=== PATIENT | male | born 1980 | race Asian ===

== ENCOUNTER 2017-03-04 20:26 | Emergency (ER) | payer MEDICAID ==
[~2017-03-04] VITALS: Ht 172.7 cm; Wt 81.8 kg
[~2017-03-04 20:26] MED LIST: ALBU8.5H8 IH; GUAI120015 PO; HYDR-569 PO; NO HOME MEDS; PANT-47 PO; PSEU-259 PO
[2017-03-04] MEDS ORDERED: AZIT-63 PO (21:36)
[2017-03-04] MEDS ORDERED: ALBU8.5H8 IH (21:36)
[2017-03-04 21:49] VITALS: BP 141/90
== END 2017-03-04 21:50 | disposition home or self-care (01) ==
LOC: ER 20:27
DX: J40 Bronchitis, not specified as acute or chronic (principal); Z79.899 Other long term (current) drug therapy
CPT/HCPCS: 99283

== ENCOUNTER 2018-12-13 11:15 | Emergency (ER) | payer MEDICAID ==
[~2018-12-13] VITALS: Ht 170.2 cm; Wt 82.0 kg
[~2018-12-13 11:15] MED LIST changes: +HYDR-4383 PO; -HYDR-569 PO
[2018-12-13 11:34] VITALS: BP 146/94
[2018-12-13] MEDS ORDERED: ipratropium/albuterol 3ml nebule NEB ONE (12:05)
--- NOTE | 2018-12-13 12:13 | NUR ---
RT AT BEDSIDE GIVING BREATHING TX.
[2018-12-13] MEDS ORDERED: PRED20TA PO (12:28)
[2018-12-13] MEDS ORDERED: ALBU8HFA PO (12:28)
--- NOTE | 2018-12-13 12:28 | NUR ---
PT BACK TO ROOM AFTER THE X RAY.
[2018-12-13] MEDS ORDERED: predniSONE 20 mg tablet PO ONE (12:35)
== END 2018-12-13 12:45 | disposition home or self-care (01) ==
LOC: ER 11:16
DX: R05 Cough (principal); R06.2 Wheezing; R09.3 Abnormal sputum; F17.200 Nicotine dependence, unspecified, uncomplicated; Z87.442 Personal history of urinary calculi; Z79.899 Other long term (current) drug therapy
CPT/HCPCS: 71045; 94640; 94760; 99283; J7512

== ENCOUNTER 2019-10-17 11:18 | Emergency (ER) | payer MEDICAID ==
[~2019-10-17] VITALS: Ht 172.7 cm; Wt 84.1 kg
[2019-10-17 12:06] VITALS: BP 142/92
[2019-10-17] MEDS ORDERED: HYDR28CR14 TOP (13:22)
--- NOTE | 2019-10-17 13:33 | NUR ---
pt seen and dc'd by provider
== END 2019-10-17 13:33 | disposition home or self-care (01) ==
LOC: ER 11:19
DX: L23.7 Allergic contact dermatitis due to plants, except food (principal); Z87.442 Personal history of urinary calculi; Z79.899 Other long term (current) drug therapy
CPT/HCPCS: 99282

== ENCOUNTER 2020-09-17 10:50 | Emergency (ER) | payer MEDICAID ==
[~2020-09-17] VITALS: Ht 371.8 cm; Wt 86.4 kg
[~2020-09-17 10:50] MED LIST changes: +ALBU8.5H17 IH; -ALBU8.5H8 IH; +HYDR28CR14 TOP
[2020-09-17 11:01] VITALS: BP 105/73
[2020-09-17] MEDS ORDERED: AZIT500T PO (13:18)
[2020-09-17] MEDS ORDERED: ALBU6.7H9 INH (13:18)
[2020-09-17] MEDS ORDERED: DEC4T PO (13:18)
== END 2020-09-17 13:39 | disposition home or self-care (01) ==
LOC: ER 10:50
DX: U07.1 COVID-19 (principal); J12.82 Pneumonia due to coronavirus disease 2019; J45.21 Mild intermittent asthma with (acute) exacerbation; R05 Cough; R53.83 Other fatigue; R06.02 Shortness of breath; Z87.11 Personal history of peptic ulcer disease; Z87.442 Personal history of urinary calculi; Z72.0 Tobacco use; Z79.2 Long term (current) use of antibiotics; Z79.899 Other long term (current) drug therapy
CPT/HCPCS: 71045; 99283

== ENCOUNTER 2020-09-20 02:50 | Emergency (ER) | payer MEDICAID ==
[~2020-09-20] VITALS: Ht 170.2 cm; Wt 86.3 kg
[~2020-09-20 02:50] MED LIST changes: +ALBU6.7H9 INH; +AZIT500T PO; +DEC4T PO
[2020-09-20 03:07] VITALS: BP 117/72
== END 2020-09-20 03:42 | disposition home or self-care (01) ==
LOC: ER 02:50
DX: R05 Cough (principal); R07.9 Chest pain, unspecified; J45.909 Unspecified asthma, uncomplicated; Z87.442 Personal history of urinary calculi; Z91.013 Allergy to seafood; Z79.899 Other long term (current) drug therapy
CPT/HCPCS: 99281; 99282

== ENCOUNTER 2021-09-22 12:52 | Emergency (ER) | payer MEDICAID ==
[~2021-09-22] VITALS: Ht 172.7 cm; Wt 77.3 kg
[~2021-09-22 12:52] MED LIST changes: -AZIT500T PO; -DEC4T PO
[2021-09-22 13:11] VITALS: BP 111/71
== END 2021-09-22 14:23 | disposition home or self-care (01) ==
LOC: ER 12:53
DX: S29.012A Strain of muscle and tendon of back wall of thorax, initial encounter (principal); J45.909 Unspecified asthma, uncomplicated; Z87.442 Personal history of urinary calculi; Z87.19 Personal history of other diseases of the digestive system; Z91.013 Allergy to seafood; Z79.899 Other long term (current) drug therapy; X58.XXXA Exposure to other specified factors, initial encounter; Y93.89 Activity, other specified; Y92.89 Other specified places as the place of occurrence of the external cause; Y99.8 Other external cause status
CPT/HCPCS: 99282

== ENCOUNTER 2024-06-01 13:39 | Emergency (ER) | payer MEDICAID ==
[~2024-06-01] VITALS: Ht 171.4 cm; Wt 77.3 kg
[~2024-06-01 13:39] MED LIST changes: +ALBU6.7H14 INH; -ALBU6.7H9 INH
[2024-06-01] MEDS: ketorolac trometh 15mg/ml vial 15 MG/ML ML IM ONE (16:04)
[2024-06-01 16:48] VITALS: BP 132/86; PULSE 82; TEMP 98.9; O2SAT 99
[2024-06-01 16:57] VITALS: RESP 16
== END 2024-06-01 16:56 | disposition home or self-care (01) ==
LOC: ER 13:40
DX: S93.491A Sprain of other ligament of right ankle, initial encounter (principal); J45.909 Unspecified asthma, uncomplicated; E11.9 Type 2 diabetes mellitus without complications; Z79.1 Long term (current) use of non-steroidal anti-inflammatories (NSAID); Z79.899 Other long term (current) drug therapy; Z87.442 Personal history of urinary calculi; X50.1XXA Overexertion from prolonged static or awkward postures, initial encounter; Y93.89 Activity, other specified; Y92.89 Other specified places as the place of occurrence of the external cause; Y99.8 Other external cause status
CPT/HCPCS: 73610; 96372; 99283; J1885